=== PATIENT | male | born 1960 | race Caucasian/White ===

== ENCOUNTER 2019-12-19 07:05 | Day surgery (SDC) | payer BC ==
[~2019-12-19] VITALS: Ht 167.6 cm; Wt 87.3 kg
[2019-12-19] VITALS (8 sets, daily range): BP systolic 100–138; BP diastolic 68–92; Ht 167.6 cm; Wt 87.3 kg
--- NOTE | ~2019-12-19 | OP ---
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 PROCEDURE: Mobi-C artificial cervical disc at C5-C6 and anterior cervical discectomy and fusion at C6-C7. SURGEON: Laurie Fortune MD DESCRIPTION AND TECHNIQUE: After induction of general endotracheal anesthesia, the patient was positioned supine on the operating table. The neck was prepped and draped in usual sterile fashion. Fluoroscopic x-ray and freer localized the C5-C6 interspace. After sterile prep and drape and infiltration 1:100,000 epinephrine with 1% lidocaine, a transverse skin incision was carried out from the midline to the sternocleidomastoid muscle. The platysma was divided with Bovie cautery. Using blunt and sharp dissection with Metzenbaum scissors, I proceeded in the avascular plane medial to the carotid sheath. The C5-C6 interspace was identified with fluoroscopic x-ray and a spinal needle. Longus colli muscles were elevated from bodies of C5, C6 and C7 and self-retaining retractor was placed deep to the longus colli muscles. [place] distracting pins were placed in the body of C5, C6, and C7. The disc space was incised with at C5-C6 and C6-C7. The disc material was removed at each level with pituitary rongeurs and curettes. Osteophytes drilled away posteriorly with Midas-Oscar drill at C5-C6 and C6-C7: Posterior longitudinal ligament was removed at each level with pituitary rongeurs and curettes. The appropriate size Mobi-C artificial cervical disc was placed in C5-C6 under fluoroscopic control. Good position of the device was confirmed with fluoroscopic x-ray. After attention was turned to the C6-C7 interspace, it was determined that this would not be a good candidate for artificial cervical disc; therefore, fusion was chosen for this level. A PEEK interbody cage was placed on the C6-C7 interspace under distraction of the [place] pins. Prior to the insertion of the cage, the cage was filled with a bone stem cells using Heather bone allograft. A Zavation anterior cervical plate and screws were used to expand the C6-C7 interspace. Locking cams were tightened down over the screw heads. Good position of the hardware was confirmed with fluoroscopic x-ray. Meticulous hemostasis was maintained throughout the wound. Wound was irrigated with copious amounts of Ancef irrigant solution. The platysma and subdermal layer closed with interrupted 3-0 Vicryl suture. The skin edges were reapproximated with Steri-Strips and benzoin. A sterile dressing was applied to the wound. The patient was awakened in good condition and taken to recovery. All counts were reported as correct. Estimated blood loss was minimal. TRANSINT:[id number] Voice Confirmation ID: [id number] DOCUMENT ID: [id number] OPERATIVE REPORT [id number] THANIA TERRELL JOHN MD CC: [id number] DICTATION DATE: 12/22/19 1231 OFFICE SWEEPER: 12/23/19 0106 [facility] 12/20/19 [id number] [place] [id number]
[~2019-12-19 07:05] MED LIST: OMEPRAZOLE CAP 20M PO
--- NOTE | 2019-12-19 14:30 | NUR ---
1423 - PT READY FOR D/C FROM PHASE 1, CONVERTING TO PHASE 2 PROTOCOL PENDING ADMISSION ORDERS FROM SURGEON.
--- NOTE | 2019-12-19 15:22 | NUR ---
TRANSFERRED PT TO STATION 5 IN THE PACU ANTEROOM. ALL VSS. NEURO CHECKS NORMAL.
--- NOTE | 2019-12-19 23:40 | NUR ---
ROONEY REMOVED. PT TOLERATED WELL. PT INSTRUCTED TO WEAR SOFT CERVICAL COLLAR WHEN GETTIN OUT OF BED. VERBALIZED UNDERSTANDING. PT PLACED HIS C COLLAR ON CORRECTLY AND IS SITTING ON THE SIDE OF THE BED. HE REPORTS PAIN IS CONTROLLED AT A 2/10 AT THIS TIME TO HIS UPPER BACK/LOWER NECK. HE IS TOLERATING CLEAR LIQUIDS AT THIS TIME. BED LOW AND CALL LIGHT WITHIN REACH.
[2019-12-20] VITALS (9 sets, daily range): BP systolic 84–122; BP diastolic 55–78
[2019-12-20] MEDS ORDERED: HYDROCODON-ACE1 EA10 PO (11:55)
== END 2019-12-20 13:00 | disposition home or self-care (01) ==
LOC: D.OPS 07:05 → D.PAN 12:30 → D.ICU 16:35 → D.OPS 12-20 13:00
PROVIDERS: ATTEND Neurological Surgery
DX: M50.222 Other cervical disc displacement at C5-C6 level (principal); M54.12 Radiculopathy, cervical region